=== PATIENT | female | born 1985 | race Caucasian/White ===

== ENCOUNTER 2016-10-25 23:48 | Inpatient (IN) | payer OTHER ==
[~2016-10-25] VITALS: Ht 170.2 cm; Wt 79.8 kg
[2016-10-25] MEDS ORDERED: IV RINGERS,LACTATED 1000ML 1,000 ML IV SCH (23:59)
[2016-10-26] VITALS (8 sets, daily range): BP systolic 93–129; BP diastolic 58–82
[2016-10-26] MEDS ORDERED: IV RINGERS,LACTATED 1000ML 1,000 ML IV SCH ×2 (00:14→13:30)
[2016-10-26] MEDS ORDERED: TERBUTALINE 1 MG/ML VIAL. SQ PRN (00:15)
[2016-10-26] MEDS ORDERED: 0.9 % SODIUM CHLORIDE 10 ML DISP.SYRIN. IV PRN ×2 (00:15→04:30)
[2016-10-26] MEDS ORDERED: FENTANYL PF 100 MCG/2 ML VIAL. IV PRN (00:15)
[2016-10-26] MEDS ORDERED: IBUPROFEN 600 MG TABLET. PO PRN (00:15)
[2016-10-26] MEDS ORDERED: ONDANSETRON PF 4 MG/2 ML VIAL. IV PRN ×2 (00:15→04:00)
[2016-10-26] MEDS ORDERED: LIDOCAINE 1% PF 30 ML VIAL. INJ PRN (00:15)
[2016-10-26] MEDS ORDERED: OXYTOCIN 30 UNIT/500 ML PREMIX 500 ML IV PRN ×3 (00:15→04:30)
[2016-10-26 00:36] LABS: BILIRUBIN,URINE NEGATIVE (NEG); GLUCOSE,URINE NEGATIVE (NEG); NITRITE,URINE NEGATIVE (NEG); PROTEIN,URINE NEGATIVE (NEG-TRACE); UROBILINOGEN,URINE 0.2 mg/dL (0.2 mg/dL)
[2016-10-26 00:38] LABS: HEMATOCRIT 32.4 % (36.0-47.0); HEMOGLOBIN 10.7 g/dL (12.0-15.5); RED BLOOD COUNT 3.8 x10^6/uL (3.50-5.40); RED CELL DISTRIBUTION WIDTH 13.9 % (11.5-14.5); WHITE BLOOD COUNT 9.7 x10^3/uL (4.0-11.0)
[2016-10-26 00:45] LABS: BACTERIA,URINE FEW /HPF (0-FEW); RBC,URINE 0 /HPF (0-2); SQUAMOUS EPITHELIAL CELL,UR MOD /LPF
[2016-10-26 00:50] LABS: BARBITURATES NEG (NEG); BENZODIAZEPINES NEG (NEG); CANNABINOIDS NEG (NEG); COCAINE NEG (NEG); METHADONE NEG (NEG); OPIATES NEG (NEG); PHENCYCLIDINE NEG (NEG)
[2016-10-26 00:51] LABS: ETHANOL, URINE NEG (NEG)
[2016-10-26] MEDS ORDERED: PENICILLIN G K 5,000,000 UNIT in IV NORMAL SALINE 100ML 100 ML IV ONE (01:00)
[2016-10-26] MEDS ORDERED: ROPIVacaine 0.2% IN 0.9%NACL PF 40 MG/20 ML DISP.SYRIN. ONE (01:34)
[2016-10-26] MEDS ORDERED: L&D EPIDURAL CASSETTE 100 ML EP ONE (01:34)
[2016-10-26] MEDS ORDERED: FENTANYL PF 100 MCG/2 ML VIAL. EPI ONE (04:00)
[2016-10-26] MEDS ORDERED: EPHEDRINE PF IN SALINE 50 MG/5 ML DISP.SYRIN. IV PRN (04:00)
[2016-10-26] MEDS ORDERED: NALOXONE 0.4 MG/ML VIAL. IV PRN (04:00)
--- NOTE | 2016-10-26 04:29 | PDOC1 ---
OB - History Hx of Present Care: Good Care Ultrasounds: Normal mid trimester US Obstetrical Complications: None Medical Complications: None Past Family/Social History * Past Medical, Surgical, Family and Obstetric Histories reviewed from chart. Rubella: Immune RPR/VDRL: Negative GBS Status: Negative HBsAG: Negative OB - Chief Complaint & HPI Date of Admission: Date of Admission: Oct 25, 2016 at 23:48 Chief Complaint/History : 5 Para: 4 EGA: 37 Reason for admission: active labor Admission Nurse Assessment Rev: Yes Problems: OB - Admission Exam Physical Exam Vitals: VS - Last 72 Hours, by Label Date Time Temp Pulse Resp B/P Pulse Ox O2 Delivery O2 Flow Rate FiO2 10/26/16 01:57 20 Room Air 10/26/16 01:11 20 Room Air 10/26/16 00:55 98.0 80 20 129/82 Room Air 98.0 HEENT: Normal Heart: Regular Rate Lungs: Clear Abdomen: Gravid, Non tender, Soft Extremities: Edema Reflexes: Normal Cervical Dilatation: 5cm Effacement: 75% Station: -2 Membranes: Intact Heart Rate: Normal Accelerations: Accelerations Present Decelerations: No decelerations Contractions on Admission: < 5 Minutes Apart Intensity: Firm Text A: 37 wks IUP Active labor P: Admit for labor management. SINGH CAMEJO Jr, MD Oct 26, 2016 04:29
[2016-10-26] MEDS ORDERED: HYDROCORTISONE 1% TOPICAL OINTMENT 30GM TUBE. TP PRN (04:30)
[2016-10-26] MEDS ORDERED: ROPIVacaine 0.2% PF 10 ML VIAL. EPI ONE (04:30)
[2016-10-26] MEDS ORDERED: BENZOCAINE 20% TOPICAL AEROSOL SPRAY 57GM CAN. TP PRN (04:30)
[2016-10-26] MEDS ORDERED: ACETAMINOPHEN 325 MG TABLET. PO PRN (04:30)
[2016-10-26] MEDS ORDERED: ZOLPIDEM 5 MG TABLET. PO PRN (04:30)
[2016-10-26] MEDS ORDERED: OXYCODONE/APAP 5/325 TABLET. PO PRN (04:30)
[2016-10-26] MEDS ORDERED: DIPHENHYDRAMINE HCL 25 MG CAPSULE PO PRN ×2 (04:30)
[2016-10-26] MEDS ORDERED: MMR per PROTOCOL. MC PRN (04:30)
[2016-10-26] MEDS ORDERED: PHENYLEPH/MINERAL OIL/PETROLAT RECTAL OINTMENT 28GM TUBE. RC PRN (04:30)
[2016-10-26] MEDS ORDERED: SIMETHICONE 80 MG TAB.CHEW PO PRN (04:30)
[2016-10-26] MEDS ORDERED: MAGNESIUM HYDROXIDE 2,400 MG/30 ML ORAL.SUSP. PO PRN (04:30)
[2016-10-26] MEDS ORDERED: MAG HYDROX/ALUMINUM HYDROX/SMC 30 ML ORAL.SUSP PO PRN (04:30)
--- NOTE | 2016-10-26 04:30 | PDOC ---
VAGINAL DELIVERY DATE DATE: 10/26/16 TIME: 04:28 : 5 Para: 5 EGA: 37 VAGINAL DELIVERY: VTX VACCUM ASSISTED: No PLACENTA: Spontaneous 8/9 SEX: Male WEIGHT Weight [3745 gm ] Nuchal Cord: Yes, Times 1 Amniotic Fluid: Clear PAIN: Epidural EPISIOTOMY: No EXTENSION: No EBL 300 ml COMPLICATIONS none CONDITION pt. stable Signs of Intrauterine Infectio: None Shoulder Dystocia: No Problems: SINGH CAMEJO Jr, MD Oct 26, 2016 04:30
[2016-10-26] MEDS ORDERED: PENICILLIN G K 2,500,000 UNIT in IV NORMAL SALINE 50ML 50 ML IV SCH (05:00)
[2016-10-26] MEDS ORDERED: PROPOFOL 20 ML IV ONE (13:12)
[2016-10-26] MEDS ORDERED: LIDOCAINE 1%/EPI 1:100,000 20 ML VIAL. ONE (13:12)
[2016-10-26] MEDS ORDERED: LIDOCAINE 1% PF 5 ML VIAL. ONE ×3 (13:14→13:15)
[2016-10-26] MEDS ORDERED: FENTANYL PF 100 MCG/2 ML VIAL. ONE ×2 (13:16→13:50)
[2016-10-26] MEDS ORDERED: LIDOCAINE 1%/EPI 1:100,000 20 ML VIAL. IJ ONE (13:21)
[2016-10-26] MEDS ORDERED: PROPOFOL 50 ML IV ONE (13:29)
--- NOTE | 2016-10-26 14:05 | PDOC ---
BRIEF OPERATIVE NOTE Pre-Op Diagnosis Sterilization Post-Op Diagnosis Same Procedure Performed Post BTL with Filshie clips Surgeon Dr. Og Anesthesia Type: Regional (Epidural) Blood Loss 5 ml Specimens Obtained none Findings enlarged, post uterus, nml fallopian tubes and ovaries sobeida. Complications none Additional Remarks ptSINGH Candelario Jr, MD Oct 26, 2016 14:05
[2016-10-26] MEDS ORDERED: PROCHLORPERAZINE 10 MG/2 ML VIAL. ONE (14:15)
[2016-10-26] MEDS: HYDROCODONE/APAP 5/325MG TABLET. PO PRN ×2 (16:13→21:05)
[2016-10-26] MEDS: DOCUSATE SODIUM 100 MG CAPSULE PO PRN (16:14)
[2016-10-26] MEDS: IBUPROFEN 800 MG TABLET. PO PRN (16:14)
--- NOTE | 2016-10-26 17:53 | OP ---
DATE OF SURGERY: 10/26/2016 PREOPERATIVE DIAGNOSES: Desires permanent sterilization. POSTOPERATIVE DIAGNOSES: Desires permanent sterilization. PROCEDURE: bilateral tubal ligation with Filshie clips. SURGEON: Dr. Vinayak Og. ANESTHESIA: Epidural. ESTIMATED BLOOD LOSS: 5 mL. COMPLICATIONS: None. FINDINGS: Enlarged uterus, normal fallopian tubes and ovaries bilaterally. SUMMARY: A 31-year-old 5, para 5, status post spontaneous vaginal delivery this morning and desires permanent sterilization. She was counseled on risks, benefits and expectations as well as the failure rate and voiced a clear understanding to proceed. DESCRIPTION OF PROCEDURE: The patient was taken to surgery suite and placed in dorsal supine position. She was prepped with ChloraPrep and draped in sterile fashion. After adequate anesthesia, 2 Allis clamps were used to grasp the skin just below the umbilicus. 1% lidocaine with epinephrine injected in a horizontal fashion between the 2 Allis clamps. Scalpel was utilized to make an incision between the 2 Allis clamps just below the umbilicus down to the fascial layer. Fascia was entered with curved Nelson scissors. The peritoneum was grasped and entered with curved Nelson scissors. The [facility] retractor was then placed. The right fallopian tube was identified and grasped with Babcocks and followed out to its fimbriated end. Filshie clip was applied to the isthmus region of the right fallopian tube, totally occluding with the left fallopian tube. Same process took place with the right fallopian tube. The fascia was then reapproximated using 2-0 Vicryl suture in running fashion. The skin was reapproximated using 4-0 Vicryl suture in subcuticular manner. The patient tolerated the procedure well and was taken to recovery room in stable condition. Sponge and needle count correct x 3. VINAYAK OG MD DR: BERNARDO/nicole JOB#: [id number] / [id number]
[2016-10-27 01:45] VITALS: BP 104/65
[2016-10-27] MEDS: IBUPROFEN 800 MG TABLET. PO PRN ×2 (01:53→17:25)
[2016-10-27 05:03] LABS: BASO % 1 % (0-3); EOS % 1 % (0-3); HEMOGLOBIN 9.4 g/dL (12.0-15.5); LYMPH % 22 % (24-48); MEAN CORPUSCULAR HEMOGLOBIN 29 pg (25-35); MEAN CORPUSCULAR HGB CONC 34 g/dL (31-37); MEAN CORPUSCULAR VOLUME 85 fL (79-100); MONO % 8 % (0-9); NEUT % 68 % (31-73); PLATELET COUNT 123 x10^3/uL (140-400); RED CELL DISTRIBUTION WIDTH 13.8 % (11.5-14.5)
[2016-10-27 05:45] VITALS: BP 95/63
[2016-10-27] MEDS: HYDROCODONE/APAP 5/325MG TABLET. PO PRN ×2 (08:06→20:44)
[2016-10-27] MEDS: FERROUS SULFATE 325 MG TABLET PO SCH ×2 (08:06→20:44)
[2016-10-27] MEDS: DOCUSATE SODIUM 100 MG CAPSULE PO PRN ×2 (08:06→20:44)
[2016-10-27 12:35] VITALS: BP 105/64
--- NOTE | 2016-10-27 13:30 | PDOC ---
OB Progress Note Date of Service 10/27/16 Time of Evaluation 1330 Notes Pt. feeling well. Pain controlled. Breast feeding. Lochia minimal. Lab Laboratory Tests Test 10/26/16 00:25 10/26/16 00:30 10/27/16 04:18 Urine Collection Type Unknown Urine Color Yellow Urine Clarity Clear Urine pH 7.0 Urine Specific [place] <=1.005 Urine Protein Negativemg/dL (NEG-TRACE) Urine Glucose (UA) Negativemg/dL (NEG) Urine Ketones (Stick) Negativemg/dL (NEG) Urine Blood Negative (NEG) Urine Nitrite Negative (NEG) Urine Bilirubin Negative (NEG) Urine Urobilinogen Dipstick 0.2mg/dL (0.2 mg/dL) Urine Leukocyte Esterase Moderate (NEG) Urine RBC 0/HPF (0-2) Urine WBC 5-10/HPF (0-4) Urine Squamous Epithelial Cells Mod/LPF Urine Bacteria Few/HPF (0-FEW) Urine Opiates Screen Neg (NEG) Urine Methadone Screen Neg (NEG) Urine Barbiturates Neg (NEG) Urine Phencyclidine Screen Neg (NEG) Urine Amphetamine/Methamphetamine Neg (NEG) Urine Benzodiazepines Screen Neg (NEG) Urine Cocaine Screen Neg (NEG) Urine Cannabinoids Screen Neg (NEG) Urine Ethyl Alcohol Neg (NEG) White Blood Count 9.7x10^3/uL (4.0-11.0) 9.0x10^3/uL (4.0-11.0) Red Blood Count 3.80x10^6/uL (3.50-5.40) 3.30x10^6/uL (3.50-5.40) Hemoglobin 10.7g/dL (12.0-15.5) 9.4g/dL (12.0-15.5) Hematocrit 32.4% (36.0-47.0) 28.0% (36.0-47.0) Mean Corpuscular Volume 85fL (79-100) 85fL (79-100) Mean Corpuscular Hemoglobin 28pg (25-35) 29pg (25-35) Mean Corpuscular Hemoglobin Concent 33g/dL (31-37) 34g/dL (31-37) Red Cell Distribution Width 13.9% (11.5-14.5) 13.8% (11.5-14.5) Platelet Count 135x10^3/uL (140-400) 123x10^3/uL (140-400) RPR Titer Additional Testing Non reactive (Non Reactive) Neutrophils (%) (Auto) 68% (31-73) Lymphocytes (%) (Auto) 22% (24-48) Monocytes (%) (Auto) 8% (0-9) Eosinophils (%) (Auto) 1% (0-3) Basophils (%) (Auto) 1% (0-3) Neutrophils # (Auto) 6.2x10^3uL (1.8-7.7) Lymphocytes # (Auto) 2.0x10^3/uL (1.0-4.8) Monocytes # (Auto) 0.7x10^3/uL (0.0-1.1) Eosinophils # (Auto) 0.1x10^3/uL (0.0-0.7) Basophils # (Auto) 0.0x10^3/uL (0.0-0.2) Laboratory Tests Test 10/27/16 04:18 White Blood Count 9.0x10^3/uL (4.0-11.0) Red Blood Count 3.30x10^6/uL (3.50-5.40) Hemoglobin 9.4g/dL (12.0-15.5) Hematocrit 28.0% (36.0-47.0) Mean Corpuscular Volume 85fL (79-100) Mean Corpuscular Hemoglobin 29pg (25-35) Mean Corpuscular Hemoglobin Concent 34g/dL (31-37) Red Cell Distribution Width 13.8% (11.5-14.5) Platelet Count 123x10^3/uL (140-400) Neutrophils (%) (Auto) 68% (31-73) Lymphocytes (%) (Auto) 22% (24-48) Monocytes (%) (Auto) 8% (0-9) Eosinophils (%) (Auto) 1% (0-3) Basophils (%) (Auto) 1% (0-3) Neutrophils # (Auto) 6.2x10^3uL (1.8-7.7) Lymphocytes # (Auto) 2.0x10^3/uL (1.0-4.8) Monocytes # (Auto) 0.7x10^3/uL (0.0-1.1) Eosinophils # (Auto) 0.1x10^3/uL (0.0-0.7) Basophils # (Auto) 0.0x10^3/uL (0.0-0.2) Medications Current Medications Lactated Ringer's (Iv Lactated Ringers) 1,000 ml @ 125 mls/hr Q8H IV Last administered on 10/26/16 00:36; Start 10/25/16 at 23:59; Stop 10/26/16 at 23:01 ; Status DC Diphenhydramine HCl (Benadryl) 25 mg PRN QHS PRN PO INSOMNIA; Start 10/26/16 at 00:00; Stop 10/26/16 at 23:01; Status DC Sodium Chloride 3 ml 3 ml QSHIFT PRN IV AFTER MEDS AND BLOOD DRAWS; Start 10/26 at 00:15; Stop 10/26/16 at 23:01; Status DC Lactated Ringer's (Iv Lactated Ringers) 1,000 ml @ 125 mls/hr Q8H IV Last administered on 10/26/16 01:55; Start 10/26/16 at 00:14; Stop 10/26/16 at 23:01 ; Status DC Fentanyl Citrate (Fentanyl 2ml Vial) 100 mcg PRN Q30MIN PRN IV Severe pain Last administered on 10/26/16 01:11; Start 10/26/16 at 00:15; Stop 10/26/16 at 23:01; Status DC Ondansetron HCl (Zofran) 4 mg PRN Q4HRS PRN IV NAUSEA/VOMITING Last administered on 10/26/16 01:11; Start 10/26/16 at 00:15; Stop 10/26/16 at 23:01 ; Status DC Terbutaline Sulfate (Brethine) 0.25 mg 1X PRN PRN SQ SEE COMMENTS; Start at 00:15; Stop 10/26/16 at 23:01; Status DC Lidocaine HCl 30 ml 30 ml 1X PRN PRN INJ SEE COMMENTS; Start 10/26/16 at 00:15 ; Stop 10/26/16 at 23:01; Status DC Oxytocin/Sodium Chloride 500 ml @ 0 mls/hr CONT PRN IV SEE I/O RECORD Last administered on 10/26/16 00:35; Start 10/26/16 at 00:15; Stop 10/26/16 at 23:01 ; Status DC Oxytocin/Sodium Chloride (Oxytocin Premix Infusion) 500 ml @ 0 mls/hr CONT PRN PRN IV Post delivery bleeding; Start 10/26/16 at 00:15; Stop 10/26/16 at 23:01; Status DC Ibuprofen 600 mg 600 mg PRN Q6HRS PRN PO MODERATE PAIN; Start 10/26/16 at 00:15 ; Stop 10/26/16 at 04:41; Status DC Penicillin G Potassium 7128894 unit/Sodium Chloride 100 ml @ 100 mls/hr 1X ONCE IV Last administered on 10/26/16 00:34; Start 10/26/16 at 01:00; Stop at 23:01; Status DC Penicillin G Potassium [id number] unit/Sodium Chloride 50 ml @ 100 mls/hr Q4H IV ; Start 10/26/16 at 05:00; Stop 10/26/16 at 23:01; Status DC Ropivacaine/ Fentanyl/NS (Ppwfayud-Brrzv-XL 3 Mcg-0.1%) 100 ml @ As Directed STK-MED ONCE EP Last administered on 10/26/16 01:57; Start 10/26/16 at 01:34; Stop 10/26/16 at 23:01; Status DC Ropivacaine 40 mg STK-MED ONCE .ROUTE Last administered on 10/26/16 01:55; Start 10/26/16 at 01:34; Stop 10/26/16 at 23:01; Status DC Ephedrine Sulfate 10 mg PRN Q2MIN PRN IV IF SBP<90; Start 10/26/16 at 04:00; Stop 10/26/16 at 23:01; Status DC Naloxone HCl (Narcan) 0.04 mg PRN Q1MIN PRN IV SEE COMMENTS; Start 10/26/16 at 04:00; Stop 10/26/16 at 23:01; Status DC Fentanyl Citrate (Fentanyl 2ml Vial) 100 mcg 1X ONCE EPI ; Start 10/26/16 at 04 :00; Stop 10/26/16 at 23:01; Status DC Ondansetron HCl (Zofran) 4 mg PRN Q6HRS PRN IV NAUSEA/VOMITING; Start 10/26/16 at 04:00; Stop 10/26/16 at 23:01; Status DC Ropivacaine (Naropin 0.2%) 20 ml 1X ONCE EPI ; Start 10/26/16 at 04:30; Stop at 23:01; Status DC Sodium Chloride 10 ml 10 ml QSHIFT PRN IV AFTER MEDS AND BLOOD DRAWS; Start at 04:30; Stop 10/26/16 at 23:01; Status DC Oxytocin/Sodium Chloride (Oxytocin Premix Infusion) 500 ml @ 62.5 mls/hr CONT PRN IV SEE I/O RECORD; Start 10/26/16 at 04:30; Stop 10/26/16 at 12:29; Status DC Acetaminophen (Tylenol) 650 mg PRN Q6HRS PRN PO MILD PAIN / TEMP; Start at 04:30 Ibuprofen (Motrin) 800 mg PRN Q8HRS PRN PO INFLAMMATION/PAIN PREVENTION Last administered on 10/27/16 01:53; Start 10/26/16 at 04:30 Docusate Sodium (Colace) 100 mg PRN BID PRN PO CONSTIPATION Last administered on 10/27/16 08:06; Start 10/26/16 at 04:30 Magnesium Hydroxide (Milk Of Magnesia) 2,400 mg PRN DAILY PRN PO CONSTIPATION; Start 10/26/16 at 04:30 Al Hydrox/Mg Hydrox/Simethicone (Mylanta Plus Xs) 30 ml PRN Q4HRS PRN PO HEARTBURN / GAS; Start 10/26/16 at 04:30 Simethicone (Gas-X) 80 mg PRN AFTMEALHC PRN PO GAS / BLOATING; Start 10/26/16 at 04:30 Diphenhydramine HCl (Benadryl) 25 mg PRN Q6HRS PRN PO ITCHING; Start 10/26/16 at 04:30 Benzocaine (Americaine) 1 spray PRN QID PRN TP TOPICAL PAIN; Start 10/26/16 at 04:30 Phenyleph/Shark Oil/Min Oil/Petrol (Preparation H) 1 arden PRN QID PRN RC RECTAL PAIN; Start 10/26/16 at 04:30 Hydrocortisone (Cortaid) 1 arden PRN QID PRN TP PERINEAL PAIN; Start 10/26/16 at 04:30 Ferrous Sulfate (Feosol) 325 mg BIDWMEALS PO Last administered on 10/27/16 08: 06; Start 10/27/16 at 08:00 Zolpidem Tartrate (Ambien) 5 mg PRN QHS PRN PO INSOMNIA, MAY REPEAT X1; Start 10/26/16 at 04:30 Info (Do NOT chart on this placeholder) 1 ea 1X PRN PRN MC SEE COMMENTS; Start 10/26/16 at 04:30 Info (Do NOT chart on this placeholder) 1 ea 1X PRN PRN MC SEE COMMENTS; Start 10/26/16 at 04:30 Oxycodone/ Acetaminophen 2 tab 2 tab PRN Q4HRS PRN PO MODERATE PAIN, SEVERE PAIN; Start 10/26/16 at 04:30; Status UNV Lactated Ringer's (Iv Lactated Ringers) 1,000 ml @ 100 mls/hr Q10H IV Last administered on 10/26/16 13:22; Start 10/26/16 at 13:30; Stop 10/26/16 at 23:01 ; Status DC Lidocaine/ Epinephrine (Xylocaine 1%-Epi 1:100,000) 20 ml STK-MED ONCE IJ Last administered on 10/26/16 13:21; Start 10/26/16 at 13:21; Stop 10/26/16 at 23:01 ; Status DC Acetaminophen/ Hydrocodone Bitart 2 tab 2 tab PRN Q4HRS PRN PO PAIN Last administered on 10/27/16 08:06; Start 10/26/16 at 16:15 Propofol (Diprivan) 20 ml @ As Directed STK-MED ONCE IV ; Start 10/26/16 at 13: 12; Stop 10/27/16 at 09:54; Status DC Lidocaine/ Epinephrine (Xylocaine 1%-Epi 1:100,000) 20 ml STK-MED ONCE .ROUTE ; Start 10/26/16 at 13:12; Stop 10/27/16 at 09:54; Status DC Lidocaine HCl (Xylocaine-Mpf 1% Vial) 5 ml STK-MED ONCE .ROUTE ; Start 10/26/16 at 13:14; Stop 10/27/16 at 09:54; Status DC Lidocaine HCl (Xylocaine-Mpf 1% Vial) 5 ml STK-MED ONCE .ROUTE ; Start 10/26/16 at 13:15; Stop 10/27/16 at 09:54; Status DC Lidocaine HCl (Xylocaine-Mpf 1% Vial) 5 ml STK-MED ONCE .ROUTE ; Start 10/26/16 at 13:15; Stop 10/27/16 at 09:54; Status DC Fentanyl Citrate 100 mcg 100 mcg STK-MED ONCE .ROUTE ; Start 10/26/16 at 13:16; Stop 10/27/16 at 09:54; Status DC Propofol (Diprivan) 50 ml @ As Directed STK-MED ONCE IV ; Start 10/26/16 at 13: 29; Stop 10/27/16 at 09:55; Status DC Fentanyl Citrate (Fentanyl 2ml Vial) 100 mcg STK-MED ONCE .ROUTE ; Start at 13:50; Stop 10/27/16 at 09:55; Status DC Prochlorperazine Edisylate (Compazine) 10 mg STK-MED ONCE .ROUTE ; Start at 14:15; Stop 10/27/16 at 09:56; Status DC Exam Abd: soft, non tender, fundus firm Incision site: clean, dry and intact Assessment PPD#1 s/p and POD#1 s/p PP BTL Plan of Care: Continue current Tx, Mgmt SINGH CAMEJO Jr, MD Oct 27, 2016 13:30
[2016-10-27 20:45] VITALS: BP 104/68
[2016-10-28 05:25] VITALS: BP 99/57
[2016-10-28] MEDS: IBUPROFEN 800 MG TABLET. PO PRN ×2 (05:26→14:25)
[2016-10-28 11:02] VITALS: BP 109/70
[2016-10-28] MEDS: FERROUS SULFATE 325 MG TABLET PO SCH (11:13)
[2016-10-28] MEDS: DOCUSATE SODIUM 100 MG CAPSULE PO PRN (11:13)
--- NOTE | 2016-10-28 11:45 | PDOC ---
OB Progress Note Date of Service 10/28/16 Time of Evaluation 1145 Notes Pt. feeling well. No complaints. Lab Laboratory Tests Test 10/27/16 04:18 White Blood Count 9.0x10^3/uL (4.0-11.0) Red Blood Count 3.30x10^6/uL (3.50-5.40) Hemoglobin 9.4g/dL (12.0-15.5) Hematocrit 28.0% (36.0-47.0) Mean Corpuscular Volume 85fL (79-100) Mean Corpuscular Hemoglobin 29pg (25-35) Mean Corpuscular Hemoglobin Concent 34g/dL (31-37) Red Cell Distribution Width 13.8% (11.5-14.5) Platelet Count 123x10^3/uL (140-400) Neutrophils (%) (Auto) 68% (31-73) Lymphocytes (%) (Auto) 22% (24-48) Monocytes (%) (Auto) 8% (0-9) Eosinophils (%) (Auto) 1% (0-3) Basophils (%) (Auto) 1% (0-3) Neutrophils # (Auto) 6.2x10^3uL (1.8-7.7) Lymphocytes # (Auto) 2.0x10^3/uL (1.0-4.8) Monocytes # (Auto) 0.7x10^3/uL (0.0-1.1) Eosinophils # (Auto) 0.1x10^3/uL (0.0-0.7) Basophils # (Auto) 0.0x10^3/uL (0.0-0.2) Medications Current Medications Lactated Ringer's (Iv Lactated Ringers) 1,000 ml @ 125 mls/hr Q8H IV Last administered on 10/26/16t 00:36; Start 10/25/16 at 23:59; Stop 10/26/16 at 23:01 ; Status DC Diphenhydramine HCl (Benadryl) 25 mg PRN QHS PRN PO INSOMNIA; Start 10/26/16 at 00:00; Stop 10/26/16 at 23:01; Status DC Sodium Chloride 3 ml 3 ml QSHIFT PRN IV AFTER MEDS AND BLOOD DRAWS; Start 10/26 at 00:15; Stop 10/26/16 at 23:01; Status DC Lactated Ringer's (Iv Lactated Ringers) 1,000 ml @ 125 mls/hr Q8H IV Last administered on 10/26/16 01:55; Start 10/26/16 at 00:14; Stop 10/26/16 at 23:01 ; Status DC Fentanyl Citrate (Fentanyl 2ml Vial) 100 mcg PRN Q30MIN PRN IV Severe pain Last administered on 10/26/16 01:11; Start 10/26/16 at 00:15; Stop 10/26/16 at 23:01; Status DC Ondansetron HCl (Zofran) 4 mg PRN Q4HRS PRN IV NAUSEA/VOMITING Last administered on 10/26/16 01:11; Start 10/26/16 at 00:15; Stop 10/26/16 at 23:01 ; Status DC Terbutaline Sulfate (Brethine) 0.25 mg 1X PRN PRN SQ SEE COMMENTS; Start at 00:15; Stop 10/26/16 at 23:01; Status DC Lidocaine HCl 30 ml 30 ml 1X PRN PRN INJ SEE COMMENTS; Start 10/26/16 at 00:15 ; Stop 10/26/16 at 23:01; Status DC Oxytocin/Sodium Chloride 500 ml @ 0 mls/hr CONT PRN IV SEE I/O RECORD Last administered on 10/26/16 00:35; Start 10/26/16 at 00:15; Stop 10/26/16 at 23:01 ; Status DC Oxytocin/Sodium Chloride (Oxytocin Premix Infusion) 500 ml @ 0 mls/hr CONT PRN PRN IV Post delivery bleeding; Start 10/26/16 at 00:15; Stop 10/26/16 at 23:01; Status DC Ibuprofen 600 mg 600 mg PRN Q6HRS PRN PO MODERATE PAIN; Start 10/26/16 at 00:15 ; Stop 10/26/16 at 04:41; Status DC Penicillin G Potassium [id number] unit/Sodium Chloride 100 ml @ 100 mls/hr 1X ONCE IV Last administered on 10/26/16 00:34; Start 10/26/16 at 01:00; Stop at 23:01; Status DC Penicillin G Potassium [id number] unit/Sodium Chloride 50 ml @ 100 mls/hr Q4H IV ; Start 10/26/16 at 05:00; Stop 10/26/16 at 23:01; Status DC Ropivacaine/ Fentanyl/NS (Cffphiry-Xebhb-PS 3 Mcg-0.1%) 100 ml @ As Directed STK-MED ONCE EP Last administered on 10/26/16 01:57; Start 10/26/16 at 01:34; Stop 10/26/16 at 23:01; Status DC Ropivacaine 40 mg STK-MED ONCE .ROUTE Last administered on 10/26/16 01:55; Start 10/26/16 at 01:34; Stop 10/26/16 at 23:01; Status DC Ephedrine Sulfate 10 mg PRN Q2MIN PRN IV IF SBP<90; Start 10/26/16 at 04:00; Stop 10/26/16 at 23:01; Status DC Naloxone HCl (Narcan) 0.04 mg PRN Q1MIN PRN IV SEE COMMENTS; Start 10/26/16 at 04:00; Stop 10/26/16 at 23:01; Status DC Fentanyl Citrate (Fentanyl 2ml Vial) 100 mcg 1X ONCE EPI ; Start 10/26/16 at 04 :00; Stop 10/26/16 at 23:01; Status DC Ondansetron HCl (Zofran) 4 mg PRN Q6HRS PRN IV NAUSEA/VOMITING; Start 10/26/16 at 04:00; Stop 10/26/16 at 23:01; Status DC Ropivacaine (Naropin 0.2%) 20 ml 1X ONCE EPI ; Start 10/26/16 at 04:30; Stop at 23:01; Status DC Sodium Chloride 10 ml 10 ml QSHIFT PRN IV AFTER MEDS AND BLOOD DRAWS; Start at 04:30; Stop 10/26/16 at 23:01; Status DC Oxytocin/Sodium Chloride (Oxytocin Premix Infusion) 500 ml @ 62.5 mls/hr CONT PRN IV SEE I/O RECORD; Start 10/26/16 at 04:30; Stop 10/26/16 at 12:29; Status DC Acetaminophen (Tylenol) 650 mg PRN Q6HRS PRN PO MILD PAIN / TEMP; Start at 04:30 Ibuprofen (Motrin) 800 mg PRN Q8HRS PRN PO INFLAMMATION/PAIN PREVENTION Last administered on 10/28/16 05:26; Start 10/26/16 at 04:30 Docusate Sodium (Colace) 100 mg PRN BID PRN PO CONSTIPATION Last administered on 10/28/16 11:13; Start 10/26/16 at 04:30 Magnesium Hydroxide (Milk Of Magnesia) 2,400 mg PRN DAILY PRN PO CONSTIPATION Last administered on 10/28/16 11:13; Start 10/26/16 at 04:30 Al Hydrox/Mg Hydrox/Simethicone (Mylanta Plus Xs) 30 ml PRN Q4HRS PRN PO HEARTBURN / GAS; Start 10/26/16 at 04:30 Simethicone (Gas-X) 80 mg PRN AFTMEALHC PRN PO GAS / BLOATING; Start 10/26/16 at 04:30 Diphenhydramine HCl (Benadryl) 25 mg PRN Q6HRS PRN PO ITCHING; Start 10/26/16 at 04:30 Benzocaine (Americaine) 1 spray PRN QID PRN TP TOPICAL PAIN; Start 10/26/16 at 04:30 Phenyleph/Shark Oil/Min Oil/Petrol (Preparation H) 1 arden PRN QID PRN RC RECTAL PAIN; Start 10/26/16 at 04:30 Hydrocortisone (Cortaid) 1 arden PRN QID PRN TP PERINEAL PAIN; Start 10/26/16 at 04:30 Ferrous Sulfate (Feosol) 325 mg BIDWMEALS PO Last administered on 10/28/16 11: 13; Start 10/27/16 at 08:00 Zolpidem Tartrate (Ambien) 5 mg PRN QHS PRN PO INSOMNIA, MAY REPEAT X1; Start 10/26/16 at 04:30 Info (Do NOT chart on this placeholder) 1 ea 1X PRN PRN MC SEE COMMENTS; Start 10/26/16 at 04:30 Info (Do NOT chart on this placeholder) 1 ea 1X PRN PRN MC SEE COMMENTS; Start 10/26/16 at 04:30 Oxycodone/ Acetaminophen 2 tab 2 tab PRN Q4HRS PRN PO MODERATE PAIN, SEVERE PAIN; Start 10/26/16 at 04:30; Status UNV Lactated Ringer's (Iv Lactated Ringers) 1,000 ml @ 100 mls/hr Q10H IV Last administered on 10/26/16 13:22; Start 10/26/16 at 13:30; Stop 10/26/16 at 23:01 ; Status DC Lidocaine/ Epinephrine (Xylocaine 1%-Epi 1:100,000) 20 ml STK-MED ONCE IJ Last administered on 10/26/16 13:21; Start 10/26/16 at 13:21; Stop 10/26/16 at 23:01 ; Status DC Acetaminophen/ Hydrocodone Bitart 2 tab 2 tab PRN Q4HRS PRN PO PAIN Last administered on 10/27/16 20:44; Start 10/26/16 at 16:15 Propofol (Diprivan) 20 ml @ As Directed STK-MED ONCE IV ; Start 10/26/16 at 13: 12; Stop 10/27/16 at 09:54; Status DC Lidocaine/ Epinephrine (Xylocaine 1%-Epi 1:100,000) 20 ml STK-MED ONCE .ROUTE ; Start 10/26/16 at 13:12; Stop 10/27/16 at 09:54; Status DC Lidocaine HCl (Xylocaine-Mpf 1% Vial) 5 ml STK-MED ONCE .ROUTE ; Start 10/26/16 at 13:14; Stop 10/27/16 at 09:54; Status DC Lidocaine HCl (Xylocaine-Mpf 1% Vial) 5 ml STK-MED ONCE .ROUTE ; Start 10/26/16 at 13:15; Stop 10/27/16 at 09:54; Status DC Lidocaine HCl (Xylocaine-Mpf 1% Vial) 5 ml STK-MED ONCE .ROUTE ; Start 10/26/16 at 13:15; Stop 10/27/16 at 09:54; Status DC Fentanyl Citrate 100 mcg 100 mcg STK-MED ONCE .ROUTE ; Start 10/26/16 at 13:16; Stop 10/27/16 at 09:54; Status DC Propofol (Diprivan) 50 ml @ As Directed STK-MED ONCE IV ; Start 10/26/16 at 13: 29; Stop 10/27/16 at 09:55; Status DC Fentanyl Citrate (Fentanyl 2ml Vial) 100 mcg STK-MED ONCE .ROUTE ; Start at 13:50; Stop 10/27/16 at 09:55; Status DC Prochlorperazine Edisylate (Compazine) 10 mg STK-MED ONCE .ROUTE ; Start at 14:15; Stop 10/27/16 at 09:56; Status DC Exam Abd: soft, non tender, fundus Incision site: clean, dry and intact Assessment PPD#2 s/p and POD#2 s/p PP BTL Plan of Care: See new orders (D/c home.) SINGH CAMEJO Jr, MD Oct 28, 2016 11:45
--- NOTE | 2016-10-28 11:45 | DISCH ---
DISCHARGE INSTRUCTIONS Condition on Discharge Condition on Discharge: Stable Activity After Discharge Activity Instructions for Disc: Activity as tolerated Lifting Instructions after Dis: No heavy lifting Driving Instructions after Dis: Do not drive today Diet after Discharge Diet after Discharge: Regular Contacting the DRDavide after DC Call your doctor for: Concerns you may have Follow-Up Follow up with: Dr. Og in 6 wks SINGH OG Jr, MD Oct 28, 2016 11:45
[2016-10-28] MEDS ORDERED: IBUP-1060 PO (11:46)
[2016-10-28] MEDS ORDERED: OXYC-323 PO (11:46)
[2016-10-28] MEDS ORDERED: HYDR-2678 PO (12:49)
[2016-10-28] MEDS: HYDROCODONE/APAP 5/325MG TABLET. PO PRN (14:24)
== END 2016-10-28 15:25 | disposition home or self-care (01) | DRG 767 ==
LOC: 3 SO LND 23:48 → OBSVTOIN 10-26 00:01 → 3 SO LND 10-26 09:30
PROVIDERS: ADMIT Obstetrics & Gynecology; ATTEND Obstetrics & Gynecology
PROC: 0UL70CZ Occlusion of Bilateral Fallopian Tubes with Extraluminal Device, Open Approach (ICD-10-PCS; 2016-10-26)
PROC: 3E0S3CZ (ICD-10-PCS; 2016-10-26)
PROC: 00HU33Z Insertion of Infusion Device into Spinal Canal, Percutaneous Approach (ICD-10-PCS; 2016-10-26)
PROC: 10E0XZZ Delivery of Products of Conception, External Approach (ICD-10-PCS; principal; 2016-10-26 13:30)
DX: O69.81X0 Labor and delivery complicated by cord around neck, without compression, not applicable or unspecified (principal); Z3A.37 37 weeks gestation of pregnancy; Z37.0 Single live birth; Z30.2 Encounter for sterilization
CPT/HCPCS: 36415; 81001; 85027; 86593; 86850; 86900; 86901; 87086; A4215; G0378; G0379; G0481; J2405; J2540; J2590; J2704; J2795; J3010; J3490; J7120